=== PATIENT | female | born 1950 | race Caucasian/White ===

== ENCOUNTER → 2020-06-03 09:21 | Outpatient (CLI) | payer BC, SELFPAY ==
--- NOTE | ~2020-06-03 | DEXA_ITS ---
Bone Density Report Name: Sandra Carpenter Age: 69 Sex: Female Ethnicity: White Date of : 1950 Indication: osteopenia;postmenopausal Referring Provider: Coy, Bhavik Hui Study: Bone densitometry was performed. Exam Date: June 03, 2020 Accession number: [id number] Bone Density: Region BMD T-score Z-score Classification AP Spine (L1-L4) 0.846 -1.8 0.1 Osteopenia Femoral Neck (Left) 0.726 -1.1 0.6 Osteopenia Total Hip (Left) 0.864 -0.6 0.7 Normal Femoral Neck (Right) 0.669 -1.6 0.0 Osteopenia Total Hip (Right) 0.782 -1.3 0.1 Osteopenia Total Hip Mean 0.823 -1.0 0.4 Normal World Health Organization criteria for BMD impression classify patients as: Normal (T-score at or above -1.0), Osteopenia (T-score between -1.0 and -2.5), or Osteoporosis (T-score at or below -2.5). 10-year Fracture Risk(1): Major Osteoporotic Fracture 9.6% Hip Fracture 1.3% Reported Risk Factors: [place] (), Neck BMD=0.669, BMI=30.0 (1) FRAX(R) Version 3.08. Fracture probability calculated for an untreated patient. Fracture probability may be lower if the patient has received treatment. Previous Exams: Region Exam Age BMD T-score BMD Change BMD Change Date g/cm2 vs Baseline vs Previous AP Spine(L1-L4) 06/03/2020 69 0.846 -1.8 -0.051 0.029* 07/05/2017 66 0.817 -2.1 -0.080 -0.009 02/02/2015 64 0.826 -2.0 -0.071 -0.013 11/25/2012 62 0.839 -1.9 -0.058 -0.027* 08/24/2011 61 0.867 -1.6 -0.031 0.052* 06/29/2010 59 0.815 -2.1 -0.083 -0.052* 06/28/2009 58 0.866 -1.6 -0.031 0.011 06/11/2006 55 0.855 -1.7 -0.042 -0.042 11/30/2003 53 0.897 -1.4 Total Hip(Left) 06/03/2020 69 0.864 -0.6 0.017 -0.010 07/05/2017 66 0.874 -0.6 0.027 -0.041* 02/02/2015 64 0.915 -0.2 0.068 0.016 11/25/2012 62 0.899 -0.4 0.052 0.011 08/24/2011 61 0.887 -0.4 0.041 0.040* 06/29/2010 59 0.847 -0.8 0.001 -0.018 06/28/2009 58 0.865 -0.6 0.019 0.033* 06/11/2006 55 0.832 -0.9 -0.014 -0.014 11/30/2003 53 0.846 -0.8 Total Hip(Right) 06/03/2020 69 0.782 -1.3 0.000 -0.005 07/05/2017 66 0.787 -1.3 0.004 -0.032* 02/02/2015 64 0.819 -1.0 0.036 -0.027 11/25/2012 62 0.846 -0.8 0.063 0.058* 08/24/2011 61 0.788 -1.3 0.00
== END ==
PROVIDERS: PCP Family Medicine; Visit Provider Family Medicine
DX: Z78.0 Asymptomatic menopausal state (principal); M85.88 Other specified disorders of bone density and structure, other site; M85.852 Other specified disorders of bone density and structure, left thigh; M85.851 Other specified disorders of bone density and structure, right thigh
CPT/HCPCS: 77080

== ENCOUNTER → 2021-11-08 10:51 | Outpatient (CLI) | payer MEDICARE, SELFPAY ==
--- NOTE | ~2021-11-08 | MM_ITS ---
EXAMINATION: MM screening [facility] BI w amelie HISTORY: Screening TECHNIQUE: Craniocaudal and mediolateral oblique 3-D tomosynthesis images were obtained and synthetic 2-D images were generated. CAD analysis was submitted and interpreted. COMPARISON: Comparison to multiple prior studies sequentially, with oldest reviewed study dated 04/2014. BREAST PARENCHYMAL COMPOSITION: There are scattered areas of fibroglandular density. FINDINGS: There is no evidence of suspicious mass, calcification, or architectural distortion to sugg est malignancy in either breast. There has been no suspicious interval change. IMPRESSION: 1. No mammographic evidence of malignancy. 2. Recommend routine screening mammography in one year. BI-RADS Category 1: Negative Reviewed, dictated and finalized at location A.
== END ==
PROVIDERS: PCP Family Medicine; Visit Provider Family Medicine
DX: Z12.31 Encounter for screening mammogram for malignant neoplasm of breast (principal)
CPT/HCPCS: 77063; 77067

== ENCOUNTER → 2023-04-05 11:22 | Outpatient (CLI) | payer MEDICARE, SELFPAY ==
--- NOTE | ~2023-04-05 | MM_ITS ---
EXAMINATION: MM screening [facility] BI w amelie HISTORY: Screening mammogram TECHNIQUE: Craniocaudal and mediolateral oblique 3-D tomosynthesis images were obtained and synthetic 2-D images were generated. CAD analysis was submitted and interpreted. COMPARISON: 11/08/2021, 05/26/2019, 07/05/2017 BREAST PARENCHYMAL COMPOSITION: There are scattered areas of fibroglandular density. FINDINGS: No suspicious mass, calcification, or architectural distortion are identified in either malik ast to suggest malignancy. There has been no suspicious interval change. IMPRESSION: 1. No mammographic evidence of malignancy. 2. Recommend routine screening mammography in one year. BI-RADS Category 1: Negative Reviewed, dictated and finalized at location L.
== END ==
PROVIDERS: PCP Nurse Practitioner Family; Visit Provider Nurse Practitioner Family
DX: Z12.31 Encounter for screening mammogram for malignant neoplasm of breast (principal)
CPT/HCPCS: 77063; 77067

== ENCOUNTER 2023-11-27 12:09 | Outpatient (CLI) | payer MEDICARE, SELFPAY ==
--- NOTE | ~2023-11-27 | DEXA_ITS ---
? Bone Density Report? Name:? OSMAR PALMA Patient ID:??? [id number] Age:? 73 Sex:? Female Ethnicity:? White Date of : 1950 Indication: postmenopausal; screening for osteoporosis; height loss; Referring Provider: ELISA, MARGARET Reynaga Study: Bone densitometry was performed. Exam Date: November 27, 2023 Accession number: [id number] Bone Density: Region? BMD??? T-score? Z-score?? Classification AP Spine(L1-L4)? 0.773?? -2.5? -0.3? Osteoporosis Femoral Neck (Left)? 0.697?? -1.4? 0.5? Osteopenia Total Hip (Left)? 0.848?? -0.8? 0.8? Normal Femoral Neck (Right)? 0.677?? -1.6? 0.3? Osteopenia Total Hip (Right)? 0.853?? -0.7? 0.8? Normal Femoral Neck Mean? 0.687?? -1.5? 0.4? Osteopenia Total Hip Mean? 0.851?? -0.7? 0.8? Normal World Health Organization criteria for BMD impression classify patients as: Normal (T-score at or above -1.0), Osteopenia (T-score between -1.0 and -2.5), or Osteoporosis (T-score at or below -2.5). 10-year Fracture Risk: FRAX not reported because: ? Some T-score for Spine Total or Hip Total or Femoral Neck at or below -2.5 Clinical Information Provided by Patient: Has used the following medications: Boniva (i.e. ibandronate), Fosamax (i.e. alendronate), Reclast (i.e. zoledronate) Patient maximum height was 63 Menopause Age: 50 Onset of menses at age 16 Number of children 3 Impression: The patient has osteoporosis, based on the Total Spine T-score. Discussion: INCREASED RISK OF FRACTURE. BONE DENSITY IS UNDESIRABLY LOW AT ONE OR MORE SKELETAL SITES, CONSISTENT WITH POSTMENOPAUSAL OSTEOPOROSIS. This patient's lowest T-score meets the World Health Organization's (WHO) criteria for osteoporosis at one or more sites (T-score -2.5 or below).? In untreated patients, the risk of osteoporotic fracture increases approximately two-fold for each 1.0 SD decrease in T-score.? Low bone density is not the only risk factor for fracture; also consider factors such as patient's age, frailty or poor health, risk of falling, risk of injury, previous osteoporotic fracture, family history of osteoporosis, cigarette smoking, low body weight, etc.? Not everyone with low bone mineral density has osteoporosis; osteomalacia and other metabolic bone disorders should also be considered. Patients who have osteoporosis should be evaluated for specific diseases and conditions (secondary causes) that may cause or contribute to bone loss.? The [place] [employer]ocrin[employer] (AACE) and National Osteoporosis Foundation (NOF) recommend pharmacologic intervention for all postmenopausal women whose T-score is in this range. The patient should follow a healthful lifestyle (good nutrition with adequate calcium and vitamin D, and appropriate weight-bearing exercise). Follow-Up: Consider a repeat BMD and Vertebral Fracture Assessment (VFA) exam in 2 years or sooner if medically necessary, to reassess this patient's statu
== END 2023-11-27 12:10 | disposition home or self-care (01) ==
LOC: CHSIMG 12:12
PROVIDERS: PCP Nurse Practitioner Family; Visit Provider Nurse Practitioner Family
DX: Z78.0 Asymptomatic menopausal state (principal); M81.0 Age-related osteoporosis without current pathological fracture; M85.89 Other specified disorders of bone density and structure, multiple sites
CPT/HCPCS: 77080

== ENCOUNTER 2025-01-24 08:29 | Outpatient (CLI) | payer MEDICARE, SELFPAY ==
--- NOTE | ~2025-01-24 | MM_ITS ---
EXAMINATION: MM screening [facility] BI w amelie HISTORY: Screening mammogram TECHNIQUE: Craniocaudal and mediolateral oblique 3-D tomosynthesis images were obtained and synthetic 2-D images were generated. CAD analysis was submitted and interpreted. COMPARISON: 04/05/2023, 11/08/2021, 05/26/2019 BREAST PARENCHYMAL COMPOSITION:Not Dense. There are scattered areas of fibroglandular density. FINDINGS: No suspicious mass, calcification, or architectural distortion are identified in either malik ast to suggest malignancy. There has been no suspicious interval change. IMPRESSION: No mammographic evidence of malignancy. Recommend routine screening mammography in one year. BI-RADS Category 1: Negative Reviewed, dictated and finalized at location .
== END 2025-01-24 08:30 | disposition home or self-care (01) ==
PROVIDERS: PCP Obstetrics & Gynecology; Visit Provider Obstetrics & Gynecology
DX: Z12.31 Encounter for screening mammogram for malignant neoplasm of breast (principal)
CPT/HCPCS: 77063; 77067